=== PATIENT | male | born 1930 | race Caucasian/White ===

== ENCOUNTER → 2018-04-25 18:22 | Outpatient (CLI) | payer BC, MEDICARE ==
[2015-07-25 14:33] VITALS: BMI 28.3
[~2018-04-25 18:22] MED LIST: BUMEX 1 MG TAB1 MG PO; COREG CR20 MG PO; DYAZIDE 37.5/251 CAP PO; ELIQUIS2.5 MG PO; HYDROCODONE-APA1 TAB PO; K-TAB10 MEQ PO; KEFLEX500 MG PO; LANOXIN250 MCG PO; LISINOPRIL5 MG PO; MULTAQ400 MG PO; OMEPRAZOLE40 MG PO; PHENOBARBITAL30 MG PO; PLAVIX75 MG PO; VOLTAREN75 MG PO
== END | disposition home or self-care (01) ==
LOC: D.LABREF 18:22
DX: M17.11 Unilateral primary osteoarthritis, right knee (principal); Z11.8 Encounter for screening for other infectious and parasitic diseases

== ENCOUNTER 2018-05-11 10:00 | Inpatient (IN) | payer BC, MEDICARE ==
[~2018-05-11] VITALS: Ht 172.7 cm; Wt 86.4 kg
--- NOTE | ~2018-05-11 | OP ---
PATIENT NAME: ASHA ZENG MEDICAL RECORD: [id number] :32 LOCATION:[facility] [id number] ADMISSION DATE:05/17/18 SURGEON: MICHEAL AKERS DO DATE OF OPERATION: 05/17/2018 PROCEDURE PERFORMED: Right total knee arthroplasty. PREOPERATIVE DIAGNOSIS: Severe right knee osteoarthritis. POSTOPERATIVE DIAGNOSIS: Severe right knee osteoarthritis. INDICATIONS: Mr. Zeng is an 87-year-old male who has experienced right knee pain and stiffness for quite some time. He has had injections and even tried all sorts of medications and they have not worked. He failed all conservative management and was started to deal with it having affected in his activities of daily living and he wanted his knee done. He was informed of the risks and benefits of the procedure and consented to a right total knee, knowing the chance of infection, bleeding, need for further surgery, revision and even . He was okay with that and wanted to have the knee done. SURGEON: Micheal Akers DO DESCRIPTION OF PROCEDURE: The patient was given a block preoperatively by anesthesia and taken to the operative suite, laid in supine position, given 2 grams Ancef preoperatively. The right lower extremity was prepped and draped in sterile fashion. A timeout was performed. Everyone was in agreement as to correct side, site, patient, and procedure. After this was done, incision was marked out right in the midline of the anterior knee and then the knee was covered with Ioban. The Esmarch was then used to exsanguinate the right lower extremity and tourniquet was inflated to 350 mmHg and was up for 59 minutes. After the tourniquet was inflated, incision began through the skin with a 10 blade scalpel down to the capsule and changed out to a #10 blade. The capsulotomy was then performed in a medial parapatellar approach. The fat pad was then removed. The knee was brought to extension and patella was milled down to size for the implant. After this, the knee was flexed up and the intramedullary guide hole was drilled with a drill and the distal femur guide was entered in and resected 11 mm of bone off the distal femur. After this was done, the tibia was marked and exposed and cut with the guide and then the knee was brought into an extension and the menisci were taken out. The patient did have a loose body of bone near the posterior tibia, which the PCL was attached to. This was removed as well. More tibia and was cut in order to fit the implant. Once the tibia had been recut and the menisci had been removed, the femur was then sized with the knee flexed up and sized to be a 65. The 4-in-1 cutting block was then used and then the post-cut was used to cut for the post for the posterior stabilized knee. The tibia was then exposed and sized to be a 75 tray. The trials were put in and the knee was ranged. Rotation was marked on the tibia and then they were removed. The patella was then drilled for the implant. After that was completed, the tibia was exposed once again, drilled and punched and irrigated thoroughly. The cement was then mixed and cement was placed on the tibia and on the implant and then impacted. Excess cement was removed with the freer and then the femur was put on and a 10 poly was put in between them and the knee was held out in extension while the cement dried and the patella was put into place as well with cement on the patella itself and on the patella implant and excess cement was removed as a squeezer was used to hold it in place. Once the cement was dried, the knee was ranged and used a 12 poly. OPERATIVE REPORT [id number] [facility] It seemed to fit the best. We inserted a 12 posterior stabilized poly in the knee. This was a 34 patella as well. This was a very good fit and ranged the knee very well, had good range of motion and very stable to varus and valgus. The tourniquet had been let down prior to this at 59 minutes and bleeding was coagulated and the patient was given another gram of TXA. After the bleeding had been coagulated and tibial poly was put in and locked into place, the knee was then flexed up and the capsule was closed with #1 Vicryl in a [id number] fashion and then Surgicel beads were then placed into the kneecap and into the knee itself prior to that closure. The skin was then closed with 2-0 Vicryl in inverted interrupted fashion. A zip line was placed on the knee. Adaptic, 4 x 4s, ABD, Webril and then Josef wrap were placed over the knee and a HEATHER hose stocking was placed from the foot up to the knee. The patient was awakened and taken to recovery in stable condition. BLOOD LOSS: Approximately 150 mL. COMPLICATIONS: None. TRANSINT:[id number] Voice Confirmation ID: [id number] DOCUMENT ID: [id number] MICHEAL AKERS DO at 1456 CC: [id number] DICTATION DATE: 05/17/18 1236 FULL STACK NET DEVELOPER: 05/17/18 1352 ADM IN [place] [id number] [place] [address]
[~2018-05-11 10:00] MED LIST changes: -BUMEX 1 MG TAB1 MG PO; -ELIQUIS2.5 MG PO; -HYDROCODONE-APA1 TAB PO; -K-TAB10 MEQ PO; -KEFLEX500 MG PO; -LISINOPRIL5 MG PO; -MULTAQ400 MG PO
[2018-05-11] MEDS ORDERED: MULTAQ400 MG PO (10:39)
[2018-05-11] MEDS ORDERED: BUMEX 1 MG TAB1 MG PO (10:40)
[2018-05-11] MEDS ORDERED: K-TAB10 MEQ PO (10:41)
[2018-05-11] MEDS ORDERED: LISINOPRIL5 MG PO (10:41)
[2018-05-11 11:18] LABS: BASOPHILS 0.5 % (0-2); EOSINOPHILS 1.1 % (0-7); HEMATOCRIT 37.3 % (42.0-54.0); HEMOGLOBIN 12.1 g/dL (13.5-17.5); IMMATURE GRANULOCYTES 0.5 % (0-5); MCH 30.9 pg (26.0-34.0); MCHC 32.4 g/dL (31.0-37.0); MCV 95.4 fL (80.0-100.0); MEAN PLATELET VOLUME 9.4 fL (7.4-10.4); MONOCYTES 8.9 % (2-11); PLATELET COUNT 240 10x3/uL (130-400); RBC 3.91 10x6/uL (4.20-6.10); RDW 15.3 % (11.5-14.5); WBC 13.1 10x3/uL (4.8-10.8)
[2018-05-11 11:22] LABS: APPEARANCE CLEAR (CLEAR); BILIRUBIN NEGATIVE (NEGATIVE); COLOR STRAW (YELLOW); GLUCOSE NEGATIVE (NEGATIVE); KETONE NEGATIVE (NEGATIVE); NITRITE NEGATIVE (NEGATIVE); PROTEIN NEGATIVE (NEGATIVE); UROBILINOGEN NORMAL (NORMAL)
[2018-05-11 11:34] LABS: APTT 28.6 SECONDS (22.8-39.4); INR 0.99 (0.85-1.17); PROTIME 12.7 SECONDS (11.6-15.0)
[2018-05-11 11:38] LABS: ANION GAP 11.2 mmol/L (8-16); CALCIUM 8.7 mg/dL (8.5-10.1); CARBON DIOXIDE 27.8 mmol/L (21.0-32.0); CREATININE - SERUM 1.2 mg/dL (0.6-1.3)
[2018-05-17 08:05] VITALS: BP 140/75; BMI 29.2
[2018-05-17 13:21] VITALS: BP 137/61
[2018-05-17 13:30] VITALS: BP 136/78; Ht 172.7 cm; Wt 86.4 kg
[2018-05-17 16:28] VITALS: BP 131/60
[2018-05-17 20:23] VITALS: BP 133/63
[2018-05-18 04:00] VITALS: BP 110/56
[2018-05-18 07:49] LABS: BASOPHILS 0.2 % (0-2); EOSINOPHILS 0 % (0-7); HEMATOCRIT 34.4 % (42.0-54.0); HEMOGLOBIN 11.3 g/dL (13.5-17.5); IMMATURE GRANULOCYTES 0.4 % (0-5); LYMPHOCYTES 16.5 % (15-50); MCHC 32.8 g/dL (31.0-37.0); MCV 94.2 fL (80.0-100.0); MEAN PLATELET VOLUME 10.4 fL (7.4-10.4); MONOCYTES 8.5 % (2-11); NEUTROPHILS 74.4 % (40-80); PLATELET COUNT 198 10x3/uL (130-400); RBC 3.65 10x6/uL (4.20-6.10); RDW 14.7 % (11.5-14.5); WBC 16.7 10x3/uL (4.8-10.8)
[2018-05-18 08:40] LABS: ALBUMIN 2.9 g/dL (3.4-5.0); ANION GAP 13.5 mmol/L (8-16); BILIRUBIN - TOTAL 0.36 mg/dL (0.2-1.3); CALCIUM 8.4 mg/dL (8.5-10.1); CARBON DIOXIDE 27.4 mmol/L (21.0-32.0); CREATININE - SERUM 1.2 mg/dL (0.6-1.3); POTASSIUM - SERUM 4.9 mmol/L (3.5-5.1); PROTEIN - SERUM 5.9 g/dL (6.4-8.2)
[2018-05-18 08:43] VITALS: BP 138/65
[2018-05-18 12:08] VITALS: BP 153/68
[2018-05-18 16:23] VITALS: BP 125/47
[2018-05-18 21:03] VITALS: BP 121/48
[2018-05-19 01:03] VITALS: BP 127/56
[2018-05-19 04:00] VITALS: BP 124/59
[2018-05-19 05:41] LABS: BASOPHILS 0.3 % (0-2); EOSINOPHILS 0.8 % (0-7); HEMATOCRIT 32.7 % (42.0-54.0); HEMOGLOBIN 10.6 g/dL (13.5-17.5); IMMATURE GRANULOCYTES 0.5 % (0-5); LYMPHOCYTES 23.5 % (15-50); MCH 30.8 pg (26.0-34.0); MCHC 32.4 g/dL (31.0-37.0); MCV 95.1 fL (80.0-100.0); MEAN PLATELET VOLUME 9.2 fL (7.4-10.4); MONOCYTES 10.3 % (2-11); NEUTROPHILS 64.6 % (40-80); PLATELET COUNT 185 10x3/uL (130-400); RBC 3.44 10x6/uL (4.20-6.10); RDW 15.3 % (11.5-14.5)
[2018-05-19 05:48] LABS: WBC 11.6 10x3/uL (4.8-10.8)
[2018-05-19 06:28] LABS: ALBUMIN 2.7 g/dL (3.4-5.0); ANION GAP 10.2 mmol/L (8-16); BILIRUBIN - TOTAL 0.31 mg/dL (0.2-1.3); CARBON DIOXIDE 29.3 mmol/L (21.0-32.0); CREATININE - SERUM 1.2 mg/dL (0.6-1.3)
[2018-05-19 06:29] LABS: POTASSIUM - SERUM 3.5 mmol/L (3.5-5.1)
[2018-05-19] MEDS ORDERED: ELIQUIS2.5 MG PO (08:02)
[2018-05-19] MEDS ORDERED: HYDROCODONE-APA1 TAB PO (08:03)
[2018-05-19] MEDS ORDERED: KEFLEX500 MG PO (08:03)
[2018-05-19 08:52] VITALS: BP 148/61
== END 2018-05-19 12:03 | disposition home or self-care (01) | DRG 470 ==
LOC: D.SDCHOLD 10:00 → D.MS 05-17 07:12 → D.SDCHOLD 05-17 07:12 → D.MS 05-17 12:58
PROVIDERS: Anesthesiology; Family Medicine Adult Medicine; Orthopaedic Surgery
PROC: 0SRC0J9 Replacement of Right Knee Joint with Synthetic Substitute, Cemented, Open Approach (ICD-10-PCS; principal; 2018-05-17 09:30)
DX: M17.11 Unilateral primary osteoarthritis, right knee (principal); I10 Essential (primary) hypertension; Z95.0 Presence of cardiac pacemaker; I48.91 Unspecified atrial fibrillation; G47.33 Obstructive sleep apnea (adult) (pediatric); Z87.891 Personal history of nicotine dependence

== ENCOUNTER → 2019-02-14 11:48 | Outpatient (CLI) | payer BC, MEDICARE ==
[~2019-02-14] VITALS: Ht 172.7 cm; Wt 83.2 kg
--- NOTE | ~2019-02-14 | HEMODYNAMI ---
PATIENT:ASHA ZENG MEDICAL RECORD: [id number] : 32 LOCATION:[facility] ADMISSION DATE: 02/14/19 Generatedon:02/14/201915:56 Patient name: ASHA ZENG Patient #: [id number] SSN: : 1930 Date of study: 02/14/2019 Page: Of Hemodynamic Procedure Report Patient Data Patient Demographics Procedure consent was obtained First Name: ASHA Gender: Male Last Name: AZUCENA : 1930 Patient #: [id number] Age: 88 year(s) Race: Unknown Additional ID: [id number] Contact details [address]: [address] [place] [address] State: [place] City: [place] Zip code: [address] Past Medical History Allergies: No known allergies Admission Admission Data Admission Date: 02/14/2019 Admission Time: 11:48 Height (in.): 67.72 BSA: 1.96 (m2) Height (cm.): 172 BMI: 28.06 (kg/m2) Weight (lbs.): 182.98 Weight (kg.): 83 Lab Results Lab Result Date: 02/14/2019 Lab Result Time: 0:00 Biochemistry Name Units Result Min Max BUN mg/dl 20 --(----)*- 7 18 Creatinine mg/dl 1.3 --(---*)-- 0.6 1.3 CBC Name Units Result Min Max Hemoglobin g/dl 11.3 *-(----)-- 13.5 17.5 Procedure Procedure Types Cath Procedure Diagnostic Procedure LHC LHC w/Coronaries Procedure Description Procedure Date Procedure Date: 02/14/2019 Procedure Start Time: 15:35 Procedure End Time: 15:54 Procedure Staff Name Function Edinson Gonzalez MD Performing Physician Amy Sanderson RT Courtesy Car Driver Amanda Burton RT Monitor Mary Grace Pearson RN Nurse Amy Sanderson RT Scrub Procedure Data Cath Procedure Fluoroscopy Diagnostic fluoroscopy Total fluoroscopy Time: 3.7 time: 3.7 min min Diagnostic fluoroscopy Total fluoroscopy dose: 538 dose: 538 mGy mGy Contrast Material Contrast Material Type Amount (ml) Isovue 300 63 Entry Location Entry Primary Successful Side Size Upsize Upsize Entry Closure Britton ccessful Closure Location (Fr) 1 (Fr) 2 (Fr) Remarks Device Remarks Femoral Right 5 Fr Manual vein Compression Femoral Right 5 Fr Exoseal artery Estimated blood loss: 10 ml Diagnostic catheters Device Type Used For End Catheter Placement MULTIPACK JL 4.0 5Fr Procedure catheter DIAGNOSTIC JL 5 5Fr Procedure catheter ([id number]) MULTIPACK 3DRC 5Fr Procedure catheter MULTIPACK Pigtail 5 Fr Procedure catheter Procedure Complications No complications Procedure Medications Medication Administration Route Dosage 0.9% NaCl I.V. 100 ml/hr Oxygen etCO2 Nasal cannula 2 l/min Lidocaine 2% added to field 20 Heparin Flush Bag added to field 2 bags (1000units/500ml NS) Versed I.V. 2 mg Fentanyl I.V. 50 mcg Versed I.V. 1 mg Fentanyl I.V. 25 mcg Hemodynamics Rest BSA: 1.96 (m2) O2 Consumption: Estimated: 222.05 (ml/min) O2 Consumption indexed : Estimated:113.29 (ml/min/m) Heart Rate: 70 (bpm) Pressure Samples Time Site Value (mmHg) Purpose Heart Use Rate(bpm) 15:49 LV 119/6,14 Snapshot 70 15:51 AO 126/50(76) Pullback 66 15:51 LV 126/7,16 Pullback 66 Gradients Valve Time Site 1 Site 2 Mean SEP/DFP Peak To Heart Use (mmHg) (sec/min) Peak Rate (mmHg) (bpm) Aortic 15:51 LV AO 11 11 0 66 126/7,16 126/50(76) Calculations Valve P-P Mean Valve Index Valve Source Name Gradient Area Flow (cm2) Aortic 0 11 0 11 Snapshots Pre Cath Intra NCS Post Cath Vital Signs Time Heart Resp SPO2 etCO2 NIBP Rhythm Pain Sedation Rate (ipm) (%) (mmHg) (mmHg) Status Level (bpm) 15:20:56 72 22 97 24.7 130/68(98) NSR 0 (11) 10(A) , No pain 15:25:12 70 18 97 23.2 126/63(97) NSR 0 (11) 10(A) , No pain 15:29:26 69 18 98 17.9 119/60(83) NSR 0 (11) 10(A) , No pain 15:33:40 69 21 98 26.9 125/56(91) NSR 0 (11) 10(A) , No pain 15:37:56 69 17 100 11.9 110/56(76) NSR 0 (11) 10(A) , No pain 15:42:06 69 16 100 31.4 114/58(90) NSR 0 (11) 9(A) , No pain 15:46:18 69 18 100 26.2 110/53(76) NSR 0 (11) 9(A) , No pain 15:50:27 69 15 100 32.2 119/56(85) NSR 0 (11) 10(A) , No pain 15:54:40 69 12 100 30.7 118/62(84) NSR 0 (11) 10(A) , No pain Medications Time Medication Route Dose Verified Delivered Reason Notes Eff ectiveness by by 15:23:19 0.9% NaCl I.V. 100 Edinson Mary Grace used for ml/hr Carlos Pearson registered nurse renal 15:23:25 Oxygen etCO2 2 Edinson Mary Grace used for Nasal l/min Carlos Pearson procedure cannula RN 15:23:30 Lidocaine 2% added 20ml Edinson Edinson for local to vial Carlos Gonazlez MD anesthetic field 15:23:35 Heparin Flush added 2 Edinson Edinson used for Bag to bags Carlos Gonzalez MD procedure (1000units/500ml field NS) 15:32:13 Versed I.V. 2 mg Edinson Mary Grace for Carlos Pearson sedation RN 15:32:21 Fentanyl I.V. 50 Edinson Mary Grace for mcg Carlos Pearson sedation RN 15:37:02 Fentanyl I.V. 25 Edinson Mary Grace for mcg Carlos Pearson sedation RN 15:37:54 Versed I.V. 1 mg Edinson Mary Grace for Carlos Pearson sedation compressor station chief engineer Log Time Note 15:08:10 Patient Height : 67.72 inches 15:08:13 Patient Weight : 182.98 lbs 15:08:36 Lab Result : Hemoglobin 11.3 g/dl 15:08:36 Lab Result : Creatinine 1.3 mg/dl 15:08:36 Lab Result : BUN 20 mg/dl 15:09:17 Diagnostic Cath status Elective 15:09:20 Amy Sanderson RT(R) sent for patient. Start room use. 15:09:21 Time tracking: Regular hours (M-F 7:00 - 5:00) 15:09:27 Plan of Care:Hemodynamics will remain stable., Cardiac rhythm will remain stable., Comfort level will be maintained., Respiratory function will remain adequate., Patient/ family verbilizes understanding of procedure., Procedure tolerated without complication., Recovers from procedure without complications.. 15:09:39 Patient received from Pre/Post Procedure Room to CCL 2 Alert and oriented. Tansferred to table in Supine position. 15:09:41 Warm blankets applied, and yury hugger turned on for patient comfort. 15::41 Correct patient and procedure confirmed by team. 15:09:43 Signed procedure consent form obtained from patient. 15:09:55 H&P Date Dictated: 01/24/2019 Within 30 days and on chart., H&P Addendum completed by physician on day of procedure. (MUST COMPLETE FOR ALL OUTPATIENTS). 15:10:07 Pre-procedure instructions explained to patient. 15:10:09 Family in waiting room. 15:10:10 Patient NPO since Midnight. 15:10:20 Patient allergic to No known allergies 15:19:45 Vital chart was started 15:20:22 Is the patient allergic to Iodine/contrast media? No. 15:20:23 Was the patient premedicated? No 15:20:24 Is patient on blood thinner?Yes 15:20:27 ACC The patient was administered the following blood thiners within the last 24 hours: ACCPlavix 15:20:29 Patient diabetic? No. 15:20:32 Previous problem with sedation/anesthesia? No ? 15:20:33 Snore? Yes 15:20:34 Sleep apnea? Yes 15:20:35 Deviated septum? No 15:20:36 Opens mouth fully? Yes 15:20:37 Sticks out tongue? Yes 15:20:38 Airway obstruction? No ? 15:20:40 Dentures? No ? 15:20:43 Pre procedure: right dorsailis pedis pulse 2+ Normal; easily identifiable; not easily obliterated 15:20:45 Pre procedure: left dorsailis pedis pulse 2+ Normal; easily identifiable; not easily obliterated 15:20:47 Patient pain scale 0/10 ?. 15:20:54 IV patent on arrival in left forearm with 0.9% NaCl at [facility]. 15:20:56 Lab results completed and on chart. 15:21:03 Right groin area was prepped with chlora-prep and draped in sterile fashion 15:: Alarms reviewed by R. N. 15:: Sharps counted by scrub and verified by R.N. 15:23:19 0.9% NaCl 100 ml/hr I.V. was administered by Mary Grace Pearson RN; used for procedure; 15:23:25 Oxygen 2 l/min etCO2 Nasal cannula was administered by Mary Grace Pearson RN; used for procedure; 15::30 Lidocaine 2% 20ml vial added to field was administered by Edinson Gonzalez MD; for local anesthetic; 15:23:35 Heparin Flush Bag (1000units/500ml NS) 2 bags added to field was administered by Edinson Gonzalez MD; used for procedure; 15::48 Physician arrived 15::49 --------ALL STOP TIME OUT------ 15::49 Final Timeout: patient, procedure, and site verified with staff and physician. All members of the team are in agreement. 15:31:55 Right groin site verified by team. 15:31:58 Maximum allowable Isovue 300 dose 300ml. Physician notified. (300ml for normal creatinines. For patients with creatinine of 1.7 or higher multiply weight(kg) x 5 divided by creatinine.) 15:32:02 Fire Safety Assessment: A--An alcohol-based skin anteseptic being used preoperatively., C--Open oxygen or nitrous oxide is being used., D--An ESU, laser, or fiber-optic light is being used. 15:32:06 Physical assessment completed. ASA score P 2 - A patient with mild systemic disease as per Edinson Gonzalez MD. 15:32:10 Sedation plan: IV Moderate Sedation Medication:Versed, Fentanyl 15:32: Versed 2 mg I.V. was administered by Mary Grace Pearson RN; for sedation; : Fentanyl 50 mcg I.V. was administered by Mary Grace Pearson RN; for sedation; 15:34:00 Use device set Femoral Dx 15:34:01 ACIST Syringe (39108) opened to sterile field. 15:34:01 Bag Decanter (2002S) opened to sterile field. 15:34:02 Medline Cath Pack ([id number]) opened to sterile field. 15:34:02 DIAGNOSTIC WIRE .035 260cm J wire (772515) opened to sterile field. 15:34:03 ACIST Hand Control (15312) opened to sterile field. 15:34:04 ACIST Manifold (62262) opened to sterile field. 15:34:04 DIAGNOSTIC Multipack 5Fr catheter set ([id number]) opened to sterile field. 15:34:07 SHEATH 5FR [place] (IUC387) opened to sterile field. 15:34:09 Tegaderm 4 x 4 (1626W) opened to sterile field. 15:34:16 Procedure started. 15:34:17 Full Disclosure recording started 15:35:56 Local anesthetic to right femoral artery with Lidocaine 2% by Edinson Gonzalez MD.INITIAL ACCESS ONLY 15:36:13 Zero performed for pressure channel P1 15:37:02 Fentanyl 25 mcg I.V. was administered by Mary Grace Pearson RN; for sedation; 15:37:54 Versed 1 mg I.V. was administered by Mary Grace Pearson RN; for sedation; 15:38:12 A 5 Fr sheath was inserted into the Right Femoral vein 15:39:50 SHEATH 5FR [place] (SXP066) opened to sterile field. 15:41:37 A 5 Fr sheath was inserted into the Right Femoral artery 15:42:42 A MULTIPACK JL 4.0 5Fr catheter was advanced over the wire and used for Procedure. 15:44:11 Catheter exchanged over wire. 15:45:06 A DIAGNOSTIC JL 5 5Fr catheter ([id number]) was advanced over the wire and used for Procedure. 15:45:09 LCA angiography performed. 15:46:12 Catheter removed. 15:46:26 A MULTIPACK 3DRC 5Fr catheter was advanced over the wire and used for Procedure. 15:47:33 RCA angiography performed. 15:47:36 Catheter removed. 15:47:44 A MULTIPACK Pigtail 5 Fr catheter was advanced over the wire and used for Procedure. 15:49:02 LV angiography performed. 15:49:52 EF : 20 % 15:49:56 LV hemodynamics recorded. 15:51:20 Catheter removed. 15:51:57 EXOSEAL 5Fr (EX500) opened to sterile field. 15:52:32 Sheath removed intact; hemostasis achieved with Exoseal to the Right Femoral artery. 15:52:44 Sheath removed intact; hemostasis achieved with Manual Compression to the Right Femoral vein. 15:52:48 Procedure ended.(Physican Out) 15:53:01 Fluoroscopy time 03.70 minutes. 15:53:05 Fluoroscopy dose: 538 mGy 15:53:05 Flurop Dose total: 538 15:53:10 Contrast amount:Isovue 300 63ml. 15:53:11 Sharps counted by scrub and verified by R.N. 15:53:13 Insertion/operative site no bleeding no hematoma. 15:53:20 Post-procedure physical assessment completed. ASA score P 2 - A patient with mild systemic disease as per Edinson Gonzalez MD. 15:53:23 Post procedure rhythm: sinus rhythm 15:53:26 Estimated blood loss: 10 ml 15:53:34 Post procedure instruction explained to patient.Patient verbalizes understanding. 15:53:44 Procedure and supply charges have been captured, reviewed, submitted and are correct. 15:54:07 Procedure Complication : No complications 15:54:10 Vital chart was stopped 15:54:11 See physician's report for complete and final results. 15:54:13 Report given to Pre/Post Procedure Room. 15:54:16 Patient transfered to Pre/Post Procedure Room with Stretcher. 15:54:19 Procedure ended. 15:54:19 Full Disclosure recording stopped 15:54:23 End room use (Document Last) Device Usage Item Name Manufacture Quantity Catalog Hospital Part Current Minimal L ot# / Number Charge Number Stock Stock Serial# Code ACIST Acist 1 78638 794803 569601 698120 20 Syringe Medical (99082) Systems Inc Bag Microtek 1 347679 59957 220385 5 Decanter Medical Inc. () Medline Medline 1 [id number] 342348 93024 655180 5 Cath Pack ([id number]) DIAGNOSTIC St Mian 1 994824 158218 748976 139058 30 WIRE .035 260cm J wire (214111) ACIST Hand Acist 1 31346 684523 883380 040409 5 Control Medical (32288) Systems Inc ACIST Acist 1 27966 661623 022820 539530 5 Manifold Medical (59510) Systems Inc DIAGNOSTIC Cardinal 1 GT6207 209058 21446 598958 30 Multipack Health 5Fr catheter set (OL5723) SHEATH 5FR Terumo 2 FCG899 461827 772036 544820 5 [place] (ATH405) Tegaderm 4 3M 1 1626W 031094 016911 297128 5 x 4 (1626W) MULTIPACK Cardinal 1 492944 5 JL 4.0 5Fr Health catheter DIAGNOSTIC Cardinal 1 [id number] 886092 471006 039260 5 JL 5 5Fr Health catheter ([id number]) MULTIPACK Cardinal 1 048481 5 3DRC 5Fr Health catheter MULTIPACK Cardinal 1 [id number] 5 Pigtail 5 Health Fr catheter EXOSEAL 5Fr Cardinal 1 EX500 272260 798253 694812 10 (EX500) Health Signature Audit [place] Stage Time Signature Unsigned Intra-Procedure 02/14/2019 Amanda Burton 3:55:55 PM RT(R) Signatures Monitor : Amanda Burton Signature : RT Date : Time : [address] [id number]
[~2019-02-14 11:48] MED LIST changes: +BUMEX 1 MG TAB1 MG PO; +ELIQUIS2.5 MG PO; +HYDROCODONE-APA1 TAB PO; +ISOSORBIDE MONO30 M1 PO; +K-TAB10 MEQ PO; +KEFLEX500 MG PO; +LISINOPRIL5 MG PO; +MULTAQ400 MG PO
[2019-02-14 12:17] VITALS: BP 131/58; Ht 172.7 cm; Wt 83.2 kg
[2019-02-14 12:27] LABS: BASOPHILS 0.7 % (0-2); HEMATOCRIT 34.8 % (42.0-54.0); HEMOGLOBIN 11.3 g/dL (13.5-17.5); IMMATURE GRANULOCYTES 0.4 % (0-5); LYMPHOCYTES 25.7 % (15-50); MCH 28.7 pg (26.0-34.0); MCHC 32.5 g/dL (31.0-37.0); MCV 88.3 fL (80.0-100.0); MEAN PLATELET VOLUME 9.2 fL (7.4-10.4); MONOCYTES 9.1 % (2-11); NEUTROPHILS 61.1 % (40-80); RBC 3.94 10x6/uL (4.20-6.10); RDW 15.8 % (11.5-14.5); WBC 11.4 10x3/uL (4.8-10.8)
[2019-02-14 12:36] LABS: PLATELET COUNT 248 10x3/uL (130-400)
[2019-02-14 12:45] LABS: ANION GAP 18.4 mmol/L (8-16); CALCIUM 8.9 mg/dL (8.5-10.1); CARBON DIOXIDE 20.5 mmol/L (21.0-32.0); CREATININE - SERUM 1.3 mg/dL (0.6-1.3); POTASSIUM - SERUM 3.9 mmol/L (3.5-5.1)
--- NOTE | 2019-02-14 16:10 | NUR ---
RECIEVED TO ROOM VIA STRETCHER FROM FIRESTOPPER INSTALLER WITH 5 FR EXOSEAL R/GROIN CDI NO BLEEDING OR HEMATOMA NOTED. PATIENT CONNECTED TO MONITOR FOR OBSERVATION WITH HR PACED AT 72 CHEST PAIN IS DENIED. INSTRUCTED PATIENT TO KEEP HEAD FLAT ON PILLOW WITH RLE STRAIGHT
--- NOTE | 2019-02-14 16:22 | NUR ---
5 FR EXOSEAL TO R/GROIN IS CDI WITH NO BLEEDING OR HEMATOMA INSTUCTED PATIENT TO KEEP HEAD FLAT ON PILLOW WITH RLE STRAIGHT
--- NOTE | 2019-02-14 17:05 | NUR ---
PATIENT RESTING QUIETLY WITH NO DISTRESS NOTED. 5 FR EXOSEAL R/GROIN IS CDI WITH NO BLEEDING
--- NOTE | 2019-02-14 17:37 | NUR ---
5 FR EXOSEAL TO R/GROIN IS CDI NO BLEEDING NOTED. REPOSITIONED TO SITTING WITH HOB UP 30 FOR COMFORT. SANDWICH AND SODA TO BEDSIDE NAUSEA DENIED
--- NOTE | 2019-02-14 17:53 | NUR ---
5 FR EXOSEAL R/GROIN IS CDI WITH NO BLEEDING NOTED. PIV REMOVED WITH DRESSING APPLIED. PATIENT UP TO GET DRESSED FOR DISCHARGE HOME NO DISTRESS NOTED
--- NOTE | 2019-02-14 18:12 | NUR ---
VERBAL AND WRITTEN DISCHARGE GONE OVER WITH PATIENT AND FAMILY. 5 FR EXOSEAL TO R/GROIN REMAINS CDI AND CHEST PAIN IS DENIED. PATIENT LEFT VIA WC TO PARKING FOR TRANSPORT HOME
== END | disposition home or self-care (01) ==
LOC: D.CATH 11:48
PROVIDERS: ATTEND Internal Medicine Cardiovascular Disease
DX: I25.110 Atherosclerotic heart disease of native coronary artery with unstable angina pectoris (principal); I51.9 Heart disease, unspecified; Z01.812 Encounter for preprocedural laboratory examination

== ENCOUNTER → 2020-03-11 18:00 | Outpatient (CLI) | payer BC, MEDICARE ==
[2019-02-14 12:17] VITALS: BMI 27.8
[2020-03-11 18:20] LABS: ANION GAP 14.4 mmol/L (8-16); CALCIUM 9.1 mg/dL (8.5-10.1); CARBON DIOXIDE 27.2 mmol/L (21.0-32.0); CREATININE - SERUM 1.3 mg/dL (0.6-1.3); MAGNESIUM - SERUM 2.3 mg/dL (1.8-2.4); POTASSIUM - SERUM 4.6 mmol/L (3.5-5.1)
== END | disposition home or self-care (01) ==
LOC: D.LABREF 18:00
PROVIDERS: ATTEND Family Medicine
DX: R60.0 Localized edema (principal); I50.9 Heart failure, unspecified